=== PATIENT | female | born 2000 | race African-American/Black ===

== ENCOUNTER 2020-12-11 19:56 | Emergency (ER) | payer MEDICAID ==
[~2020-12-11] VITALS: Ht 124.5 cm; Wt 79.4 kg
--- NOTE | 2020-12-11 21:47 | NUR ---
URINE COLLECTED AND SENT TO LAB. PT PLACED IN A GOWN.
[2020-12-11] MEDS ORDERED: ACETAMINOPHEN ES 500 MG TABLET ONE (21:50)
--- NOTE | 2020-12-11 21:53 | NUR ---
US TECH AT BED SIDE
[2020-12-11] MEDS ORDERED: ACETAMINOPHEN ES 500 MG TABLET PO ONE (22:00)
[2020-12-11 22:21] LABS: BILIRUBIN,URINE NEGATIVE (NEGATIVE); COLOR,URINE YELLOW (YELLOW); LEUKOCYTE ESTERASE ,URINE NEGATIVE (NEGATIVE); NITRITE, URINE NEGATIVE (NEGATIVE); PROTEIN,URINE NEGATIVE (NEGATIVE); UGLUCOSE NEGATIVE (NEGATIVE); UROBILINOGEN,URINE 0.2 EU/dL (0.2)
[2020-12-11 22:34] LABS: BASOPHILS % (AUTO) 0.3 % (0.0-2.0); HEMATOCRIT 39 % (33-45); HEMOGLOBIN 12.3 g/dL (11.5-14.8); LYMPHOCYTES # (AUTO) 1.8 /CMM (0.8-4.8); MEAN CORPUSCULAR HGB CONC 31 g/dl (31.0-36.0); MEAN CORPUSCULAR VOLUME 79 fL (82-100); MONOCYTES # (AUTO) 0.9 /CMM (0.1-1.30); MONOCYTES % (AUTO) 10.7 % (2.0-12.0); NEUTROPHILS # (AUTO) 5.7 /CMM (1.8-8.9); PLATELET COUNT (AUTO) 419 /CMM (150-450); RED BLOOD CELL COUNT(AUTO) 4.96 MIL/uL (4.0-5.2); WHITE BLOOD COUNT (AUTO) 8.6 K/uL (4.3-11.0)
[2020-12-11 22:42] LABS: CALCIUM, SERUM 9.9 mg/dL (8.5-10.1); CREATININE 0.7 mg/dL (0.6-1.3); POTASSIUM 4.3 mmol/L (3.5-5.1)
[2020-12-11 22:57] LABS: ALBUMIN 3.7 g/dL (3.4-5.0); BILIRUBIN,DIRECT 0.1 mg/dL (0.0-0.2); BILIRUBIN,TOTAL 0.2 mg/dL (0.2-1.0); TOTAL PROTEIN, SERUM 8.3 g/dL (6.4-8.2)
--- NOTE | 2020-12-12 00:09 | NUR ---
Patient discharged to home in stable condition. Written and verbal after care instructions given. Patient verbalizes understanding of instruction.
[2020-12-12 00:10] VITALS: BP 138/68
== END 2020-12-12 00:10 | disposition home or self-care (01) ==
LOC: ER 19:56
DX: O26.899 Other specified pregnancy related conditions, unspecified trimester (principal); N94.6 Dysmenorrhea, unspecified; R71.8 Other abnormality of red blood cells; Z3A.01 Less than 8 weeks gestation of pregnancy
CPT/HCPCS: 76856-TC; 80048-TC; 80076-TC; 84702-TC; 85025-TC; 87491; 87591

== ENCOUNTER 2021-05-07 08:55 | Emergency (ER) | payer MEDICAID ==
[~2021-05-07] VITALS: Ht 149.9 cm; Wt 79.4 kg
--- NOTE | 2021-05-07 09:01 | NUR ---
Patient came in to the er c/o R ankle pain s/p twisted 2 days ago 6/10 pain scale. On room air, breathing evenly and unlabored. Kept comfortable, will continue to monitor accordingly.
--- NOTE | 2021-05-07 09:49 | NUR ---
geovani at bedside for x-ray.
[2021-05-07 10:20] VITALS: BP 144/71
--- NOTE | 2021-05-07 10:21 | NUR ---
Patient discharged to home in stable condition. Written and verbal after care instructions given. Patient verbalizes understanding of instruction.
== END 2021-05-07 10:20 | disposition home or self-care (01) ==
LOC: ER 08:57
DX: S93.491A Sprain of other ligament of right ankle, initial encounter (principal); X50.1XXA Overexertion from prolonged static or awkward postures, initial encounter; Y93.89 Activity, other specified; Y92.89 Other specified places as the place of occurrence of the external cause; Y99.8 Other external cause status
CPT/HCPCS: 73610-TC; 73630-TC

== ENCOUNTER 2021-07-14 10:15 | Emergency (ER) | payer MEDICAID ==
[~2021-07-14] VITALS: Ht 149.9 cm; Wt 79.4 kg
--- NOTE | 2021-07-14 10:24 | NUR ---
URINE SPECIMEN COLLECTED AND SENT TO LAB.
--- NOTE | 2021-07-14 10:27 | NUR ---
The patient bibs for c/o abd pain, constipated for 10 days, 02/10 ps, +N/V. Will continue to monitor the patient.
--- NOTE | 2021-07-14 10:50 | NUR ---
IV LINE IS ESTALISHED, BLOOD SPECIMEN COLLECTED AND SENT TO THE LAB. THE LINE IS SALINE LOCKED.
[2021-07-14 10:51] LABS: BASOPHILS # (AUTO) 0.1 K/uL (0.0-0.2); BASOPHILS % (AUTO) 0.7 % (0.0-2.0); EOSINOPHILS % (AUTO) 1.3 % (0.0-6.0); HEMATOCRIT 39 % (33-45); HEMOGLOBIN 12.7 g/dL (11.5-14.8); LYMPHOCYTES # (AUTO) 2.1 K/uL (0.8-4.8); LYMPHOCYTES % (AUTO) 29.4 % (20.0-44.0); MEAN CORPUSCULAR HGB CONC 33 g/dl (31.0-36.0); MEAN CORPUSCULAR VOLUME 78 fL (82-100); MONOCYTES # (AUTO) 0.4 K/uL (0.1-1.30); MONOCYTES % (AUTO) 5.8 % (2.0-12.0); NEUTROPHILS # (AUTO) 4.6 K/uL (1.8-8.9); NEUTROPHILS % (AUTO) 62.8 % (43.0-81.0); PLATELET COUNT (AUTO) 463 K/uL (150-450); RED BLOOD CELL COUNT(AUTO) 4.94 MIL/uL (4.0-5.2); WHITE BLOOD COUNT (AUTO) 7.3 K/uL (4.3-11.0)
[2021-07-14 10:53] LABS: BILIRUBIN,URINE NEGATIVE (NEGATIVE); COLOR,URINE YELLOW (YELLOW); LEUKOCYTE ESTERASE ,URINE NEGATIVE (NEGATIVE); NITRITE, URINE NEGATIVE (NEGATIVE); PH,URINE 6.5 (5.0-8.0); PROTEIN,URINE NEGATIVE (NEGATIVE); UGLUCOSE NEGATIVE (NEGATIVE); UROBILINOGEN,URINE 0.2 EU/dL (0.2)
[2021-07-14] MEDS ORDERED: ACETAMINOPHEN ES 500 MG TABLET ONE (10:56)
[2021-07-14] MEDS ORDERED: ACETAMINOPHEN ES 500 MG TABLET PO ONE (11:00)
[2021-07-14] MEDS ORDERED: IV NS 0.9% 1,000 ML BAG IV ONE (11:00)
[2021-07-14 11:02] LABS: CALCIUM, SERUM 9.5 mg/dL (8.5-10.1); CREATININE 0.9 mg/dL (0.6-1.3); POTASSIUM 4.1 mmol/L (3.5-5.1)
[2021-07-14 11:10] LABS: ALBUMIN 3.9 g/dL (3.4-5.0); BILIRUBIN,DIRECT 0.1 mg/dL (0.0-0.2); BILIRUBIN,TOTAL 0.2 mg/dL (0.2-1.0); TOTAL PROTEIN, SERUM 8.9 g/dL (6.4-8.2)
[2021-07-14] MEDS ORDERED: IV NS 0.9% 250 ML IV ONE (11:29)
[2021-07-14] MEDS ORDERED: IOHEXOL-300 100 ML VIAL IV ONE (11:29)
--- NOTE | 2021-07-14 11:33 | NUR ---
TAKEN TO CT
--- NOTE | 2021-07-14 13:20 | NUR ---
US AT BEDSIDE
[2021-07-14] MEDS ORDERED: POLY17PO4 PO (14:44)
[2021-07-14] MEDS ORDERED: DOCU100C36 PO (14:44)
--- NOTE | 2021-07-14 15:45 | NUR ---
IV removed. Catheter intact and site benign. Pressure and 4x4 applied to site. No bleeding noted.Patient discharged to home in stable condition. Written and verbal after care instructions given. Patient verbalizes understanding of instruction.
[2021-07-14 16:15] VITALS: BP 126/93
== END 2021-07-14 16:16 | disposition home or self-care (01) ==
LOC: ER 10:56
DX: R10.84 Generalized abdominal pain (principal); K59.00 Constipation, unspecified; D21.9 Benign neoplasm of connective and other soft tissue, unspecified
CPT/HCPCS: 36415; 74177; 76856; 80048; 80076; 81003; 83690; 84703; 85025; 96360; 99285; J7030; J7050; Q9967

== ENCOUNTER 2021-08-29 19:04 | Emergency (ER) | payer MEDICAID ==
[~2021-08-29] VITALS: Ht 149.9 cm; Wt 80.7 kg
[~2021-08-29 19:04] MED LIST: DOCU100C36 PO; POLY17PO4 PO
[2021-08-29] MEDS ORDERED: MAG HYDROX/AL HYDROX/SIMETH 30 ML UDC PO ONE (21:00)
[2021-08-29] MEDS ORDERED: ONDANSETRON HCL/PF 4 MG/2 ML VIAL IVP ONE (21:00)
[2021-08-29] MEDS ORDERED: IV NS 0.9% 1,000 ML BAG IV ONE (21:00)
[2021-08-29] MEDS ORDERED: LIDOCAINE VISCOUS 2% UD 15 ML UDC MM ONE (21:00)
[2021-08-29] MEDS ORDERED: MAG HYDROX/AL HYDROX/SIMETH 30 ML UDC ONE (21:19)
[2021-08-29] MEDS ORDERED: ONDANSETRON HCL/PF 4 MG/2 ML VIAL ONE (21:19)
[2021-08-29] MEDS ORDERED: LIDOCAINE VISCOUS 2% UD 15 ML UDC ONE (21:19)
[2021-08-29] MEDS ORDERED: MAGNESIUM CITRATE 296 ML BOTTLE ONE (21:24)
[2021-08-29] MEDS ORDERED: ONDANSETRON 4 MG TAB.RAPDIS ONE (21:25)
[2021-08-29] MEDS ORDERED: POLY17PO4 PO (21:29)
[2021-08-29] MEDS ORDERED: DOCU-141 PO (21:29)
[2021-08-29] MEDS ORDERED: ONDA4TAB11 PO (21:30)
[2021-08-29] MEDS ORDERED: MAGNESIUM CITRATE 296 ML BOTTLE PO ONE (21:30)
[2021-08-29 22:11] VITALS: BP 150/88
== END 2021-08-29 22:12 | disposition home or self-care (01) ==
LOC: ER 19:05
DX: K59.00 Constipation, unspecified (principal); Z91.013 Allergy to seafood; Z79.1 Long term (current) use of non-steroidal anti-inflammatories (NSAID); Z79.899 Other long term (current) drug therapy
CPT/HCPCS: 84703-TC; J2405; J7030; Q0162

== ENCOUNTER 2021-10-02 14:13 | Emergency (ER) | payer MEDICAID ==
[~2021-10-02] VITALS: Ht 149.9 cm; Wt 80.7 kg
[~2021-10-02 14:13] MED LIST changes: +DOCU-141 PO; +ONDA4TAB11 PO
[2021-10-02 14:47] VITALS: BP 135/75
[2021-10-02] MEDS ORDERED: CIPR10DR EACH EAR (15:06)
[2021-10-02] MEDS ORDERED: AMOX500C2 PO (15:06)
== END 2021-10-02 16:00 | disposition home or self-care (01) ==
LOC: ER 14:18
DX: H66.93 Otitis media, unspecified, bilateral (principal); Z79.899 Other long term (current) drug therapy

== ENCOUNTER → 2022-08-02 | Emergency (ER) | payer MEDICAID ==
[~2022-08-02] VITALS: Ht 149.9 cm; Wt 90.7 kg
[~2022-08-02] MED LIST changes: +AMOX500C2 PO; +CIPR10DR EACH EAR; +CYCLOBENZAPRINE 10 MG TABLET ONE; +KETOROLAC TROMETHAMINE INJ 30 MG/ML VIAL ONE; +TYL2T PO
--- NOTE | 2022-08-02 17:45 | NUR ---
HEADACHE/NECK AND BACK PAIN,S/P GLF THIS AFTERNOON
--- NOTE | 2022-08-02 18:00 | NUR ---
medicated as ordered
--- NOTE | 2022-08-02 18:15 | NUR ---
waiver signed by patient
[2022-08-02] MEDS: CYCLOBENZAPRINE 10 MG TABLET PO ONE (18:30)
[2022-08-02] MEDS: KETOROLAC TROMETHAMINE INJ 60 MG/2 ML VIAL IM ONE (18:40)
[2022-08-02 19:09] VITALS: BP 175/89
--- NOTE | 2022-08-02 19:27 | NUR ---
Patient discharged to home in stable condition. Written and verbal after care instructions given. Patient verbalizes understanding of instruction.
== END | disposition home or self-care (01) ==
LOC: ER 17:28
DX: S06.0XAA Concussion with loss of consciousness status unknown, initial encounter (principal); Z91.013 Allergy to seafood; Z79.899 Other long term (current) drug therapy; W18.30XA Fall on same level, unspecified, initial encounter; Y93.89 Activity, other specified; Y92.89 Other specified places as the place of occurrence of the external cause; Y99.8 Other external cause status
CPT/HCPCS: 99284; 70450; 96372; J1885

== ENCOUNTER 2023-01-04 19:05 | Emergency (ER) | payer OTHER ==
[~2023-01-04] VITALS: Ht 180.3 cm; Wt 81.6 kg
[~2023-01-04 19:05] MED LIST changes: -CYCLOBENZAPRINE 10 MG TABLET ONE; -KETOROLAC TROMETHAMINE INJ 30 MG/ML VIAL ONE
--- NOTE | 2023-01-04 20:48 | NUR ---
URINE COLLECTED AND SENT TO LAB
--- NOTE | 2023-01-04 21:02 | NUR ---
BIBS C/O L SIDE HEAD PAIN S/P "FALL FROM CHAIR AT WORK ON FRIDAY" DENIES KO. PAIN NOT RELIEVED BY OTC MEDS. 03/13 PAIN. BIBS C/O L SIDE HEAD PAIN S/P "FALL FROM CHAIR AT WORK ON FRIDAY" DENIES KO. PAIN NOT RELIEVED BY OTC MEDS. 03/13 PAIN.
--- NOTE | 2023-01-04 21:21 | NUR ---
PT SIGNED WAIVER FORM; CUSTOMER SUPPORT REPRESENTATIVE AWARE
--- NOTE | 2023-01-04 21:21 | NUR ---
Chris rosa in [facility] - 01/04/23 at 2122 by THAO I&D DONE BY DR ODONNELL WITH FEMALE RN RETAIL STOCK CLERK
[2023-01-04] MEDS ORDERED: NAPR-1009 PO (22:22)
[2023-01-04] MEDS ORDERED: NAPROXEN 250 MG TABLET PO ONE (22:30)
[2023-01-04] MEDS ORDERED: NAPROXEN 250 MG TABLET ONE (23:02)
--- NOTE | 2023-01-04 23:10 | NUR ---
DPatient discharged to home in stable condition. Written and verbal after care instructions given. Patient verbalizes understanding of instruction.
[2023-01-04 23:13] VITALS: BP 145/71
== END 2023-01-04 23:13 | disposition home or self-care (01) ==
LOC: ER 19:18
DX: R51.9 Headache, unspecified (principal); R42 Dizziness and giddiness; Z91.013 Allergy to seafood; Z79.2 Long term (current) use of antibiotics; Z79.899 Other long term (current) drug therapy; W07.XXXA Fall from chair, initial encounter; Y93.89 Activity, other specified; Y92.89 Other specified places as the place of occurrence of the external cause; Y99.0 Civilian activity done for income or pay
CPT/HCPCS: 70450-TC

== ENCOUNTER 2023-03-10 20:51 | Emergency (ER) | payer OTHER ==
[~2023-03-10] VITALS: Ht 149.9 cm; Wt 81.6 kg
[~2023-03-10 20:51] MED LIST changes: +NAPR-1009 PO
[2023-03-10] MEDS ORDERED: ONDA4TAB11 PO (21:28)
[2023-03-10] MEDS ORDERED: LOPE2CAP PO (21:28)
[2023-03-10] MEDS ORDERED: IV NS 0.9% 1,000 ML BAG IV ONE (21:30)
[2023-03-10] MEDS ORDERED: ONDANSETRON HCL/PF 4 MG/2 ML VIAL IVP ONE (21:30)
[2023-03-10] MEDS ORDERED: ONDANSETRON HCL/PF 4 MG/2 ML VIAL ONE (21:34)
[2023-03-10 22:06] LABS: BASOPHILS # (AUTO) 0.1 K/uL (0.0-0.2); BASOPHILS % (AUTO) 1.1 % (0.0-2.0); EOSINOPHILS # (AUTO) 0.2 K/uL (0.0-0.7); EOSINOPHILS % (AUTO) 2.4 % (0.0-6.0); HEMATOCRIT 33 % (33-45); HEMOGLOBIN 10.4 g/dL (11.5-14.8); LYMPHOCYTES # (AUTO) 2.9 K/uL (0.8-4.8); LYMPHOCYTES % (AUTO) 32.9 % (20.0-44.0); MEAN CORPUSCULAR HEMOGLOBIN 22 PG (26.0-33.0); MEAN CORPUSCULAR HGB CONC 31 g/dl (31.0-36.0); MEAN CORPUSCULAR VOLUME 71 fL (82-100); MONOCYTES # (AUTO) 0.7 K/uL (0.1-1.30); MONOCYTES % (AUTO) 8.1 % (2.0-12.0); NEUTROPHILS # (AUTO) 4.9 K/uL (1.8-8.9); NEUTROPHILS % (AUTO) 55.5 % (43.0-81.0); PLATELET COUNT (AUTO) 526 K/uL (150-450); RED BLOOD CELL COUNT(AUTO) 4.69 MIL/uL (4.0-5.2); RED CELL DISTRIBUTION WIDTH 16.7 % (11.5-15.0); WHITE BLOOD COUNT (AUTO) 8.9 K/uL (4.3-11.0)
[2023-03-10 22:42] LABS: ALBUMIN 3.7 g/dL (3.4-5.0); BILIRUBIN,TOTAL 0.2 mg/dL (0.2-1.0); CALCIUM, SERUM 9.6 mg/dL (8.5-10.1); CREATININE 0.8 mg/dL (0.6-1.3); POTASSIUM 4.3 mmol/L (3.5-5.1); TOTAL PROTEIN, SERUM 8.3 g/dL (6.4-8.2)
[2023-03-11 00:07] VITALS: BP 147/82; TEMP 98.1; O2SAT 99
== END 2023-03-11 00:07 | disposition home or self-care (01) ==
LOC: ER 21:05
DX: K52.9 Noninfective gastroenteritis and colitis, unspecified (principal); R11.2 Nausea with vomiting, unspecified; Z91.013 Allergy to seafood; Z79.899 Other long term (current) drug therapy
CPT/HCPCS: 99283; 96374; 96361; 85025; 80048; 83690; 80076; 36415; J2405; J7030 ×2

== ENCOUNTER 2023-05-04 17:21 | Emergency (ER) | payer OTHER ==
[~2023-05-04] VITALS: Ht 149.9 cm; Wt 89.8 kg
[~2023-05-04 17:21] MED LIST changes: +LOPE2CAP PO
[2023-05-04 18:41] LABS: BASOPHILS % (AUTO) 0.5 % (0.0-2.0); EOSINOPHILS # (AUTO) 0.2 K/uL (0.0-0.7); EOSINOPHILS % (AUTO) 3.8 % (0.0-6.0); HEMATOCRIT 33 % (33-45); HEMOGLOBIN 10.3 g/dL (11.5-14.8); LYMPHOCYTES # (AUTO) 2.2 K/uL (0.8-4.8); LYMPHOCYTES % (AUTO) 38.5 % (20.0-44.0); MEAN CORPUSCULAR HEMOGLOBIN 22 PG (26.0-33.0); MEAN CORPUSCULAR HGB CONC 31 g/dl (31.0-36.0); MEAN CORPUSCULAR VOLUME 72 fL (82-100); MONOCYTES # (AUTO) 0.5 K/uL (0.1-1.30); MONOCYTES % (AUTO) 7.9 % (2.0-12.0); NEUTROPHILS # (AUTO) 2.9 K/uL (1.8-8.9); NEUTROPHILS % (AUTO) 49.3 % (43.0-81.0); PLATELET COUNT (AUTO) 435 K/uL (150-450); RED BLOOD CELL COUNT(AUTO) 4.65 MIL/uL (4.0-5.2); RED CELL DISTRIBUTION WIDTH 17.5 % (11.5-15.0); WHITE BLOOD COUNT (AUTO) 5.8 K/uL (4.3-11.0)
[2023-05-04 18:50] LABS: CALCIUM, SERUM 9.2 mg/dL (8.5-10.1); CREATININE 0.8 mg/dL (0.6-1.3); POTASSIUM 3.4 mmol/L (3.5-5.1)
[2023-05-04 18:56] LABS: ALBUMIN 3.5 g/dL (3.4-5.0); BILIRUBIN,DIRECT 0.1 mg/dL (0.0-0.2); BILIRUBIN,TOTAL 0.1 mg/dL (0.2-1.0); TOTAL PROTEIN, SERUM 7.7 g/dL (6.4-8.2)
[2023-05-04 19:13] LABS: APPEARANCE,URINE SLIGHTLY CLOUDY (CLEAR); BILIRUBIN,URINE NEGATIVE (NEGATIVE); BLOOD, URINE 3+ Ery/uL (NEGATIVE); COLOR,URINE YELLOW (YELLOW); KETONES,URINE NEGATIVE (NEGATIVE); LEUKOCYTE ESTERASE ,URINE 1+ (NEGATIVE); NITRITE, URINE NEGATIVE (NEGATIVE); PROTEIN,URINE NEGATIVE (NEGATIVE); UGLUCOSE NEGATIVE (NEGATIVE); UROBILINOGEN,URINE 0.2 EU/dL (0.2)
[2023-05-04 19:20] LABS: PREGNANCY TEST URINE QUAL NEGATIVE (NEGATIVE)
[2023-05-04 19:33] LABS: RBC,URINE 51-80 /HPF (0-2)
[2023-05-04 19:34] LABS: ADD URINE CULTURE YES; BACTERIA,URINE 1+ /HPF (None Seen)
[2023-05-04] MEDS ORDERED: ONDA4TAB11 PO (19:50)
[2023-05-04] MEDS ORDERED: DICY20TA11 PO (19:50)
[2023-05-04] MEDS ORDERED: KETO10TA2 PO (19:50)
[2023-05-04 19:57] LABS: ANISOCYTOSIS 1+; EOSINOPHILS % (MANUAL) 5 % (0-4); LYMPHOCYTES % (MANUAL) 36 % (16-48); MONOCYTES % (MANUAL) 3 % (0-11.0); NEUTROPHILS % (MANUAL) 56 (42-76); PLATELET ESTIMATE ADEQUATE; ROULEAUX 1+
[2023-05-04 20:06] VITALS: BP 159/91; TEMP 98.7; O2SAT 100
[2023-05-06 05:08] LABS: RAPID PLASMA REAGIN QUAL. Non Reactive (Non Reactive)
[2023-05-06 22:06] LABS: CHLAMYDIA TRACHOMATIS NAA Negative (Negative); NEISSERIA GONORRHOEAE NAA Negative (Negative)
[2023-05-06 23:06] LABS: *HSV 1 DNA PCR Negative (Negative); *HSV 2 DNA PCR Negative (Negative)
== END 2023-05-04 20:07 | disposition home or self-care (01) ==
LOC: ER 17:24
DX: A08.4 Viral intestinal infection, unspecified (principal); Z79.899 Other long term (current) drug therapy; Z91.013 Allergy to seafood
CPT/HCPCS: 36415; 80048-TC; 80076-TC; 81001; 83690-TC; 84703-TC; 85025-TC; 86592; 86593; 87086-TC; 87491; 87591; 87806